=== PATIENT | female | born 1955 | race Caucasian/White ===

== ENCOUNTER 2017-04-14 05:36 | Emergency (ER) | payer OTHER ==
[2017-04-14] MEDS: KETOROLAC 30 MG INJ IM (07:32)
[2017-04-14 09:09] LABS: URINE BLOOD (Dip) POC 1+ (NEGATIVE); URINE GLUCOSE (Dip) POC Negative (NEGATIVE); URINE KETONES (Dip) POC Negative (NEGATIVE); URINE LEUKOCYTE EST (Dip) POC 2+ (NEGATIVE); URINE NITRITE (Dip) POC Negative (NEGATIVE); URINE TOTAL PROTEIN POC Negative (NEGATIVE)
== END 2017-04-14 10:00 | disposition home or self-care (01) ==
LOC: FTE 05:36
DX: N39.0 Urinary tract infection, site not specified (principal)
CPT/HCPCS: 72100; 81003; 87086; 96372; 99284-25